=== PATIENT | female | born 1980 | race Two or more races ===

== ENCOUNTER 2017-11-29 23:40 | Inpatient (IN) | payer BC ==
[2017-11-30] MEDS ORDERED: Oxytocin 30 UNITS in Sodium Chloride 0.9% 500 ML IV PRN (00:28)
[2017-11-30] MEDS ORDERED: ceFAZolin 2 GM in Sodium Chloride 0.9% 100 ML IVPB ONE (00:28)
[2017-11-30] MEDS ORDERED: Lactated Ringer's 1,000 ML IV SCH ×2 (00:30→10:00)
[2017-11-30 00:33] VITALS: BMI 28.8
[2017-11-30 01:11] LABS: BASO # 0.1 K/uL (0.0-0.2); BASO % 0.5 % (0.0-2.0); EOS # 0.1 K/uL (0.0-0.7); EOS % 0.6 % (0.0-4.0); HEMOGLOBIN 9.9 g/dL (12.0-16.0); LYMPH # 2.4 K/uL (1.0-4.3); LYMPH % 19.4 % (20.0-40.0); MEAN CELL VOLUME 91.6 fl (81.0-99.0); MEAN CORPUSCULAR HEMOGLOBIN 30.5 pg (27.0-31.0); MEAN CORPUSCULAR HGB CONC 33.3 g/dL (33.0-37.0); MEAN PLATELET VOLUME 9.1 fl (7.2-11.7); MONO # 1.2 K/uL (0.0-0.8); MONO % 9.7 % (0.0-10.0); NEUT # 8.7 K/uL (1.8-7.0); NEUT % 69.8 % (50.0-75.0); RBC 3.23 Mil/uL (3.80-5.20); RED CELL DISTRIBUTION WIDTH 12.9 % (11.5-14.5); WHITE BLOOD COUNT 12.5 K/uL (4.8-10.8)
--- NOTE | 2017-11-30 04:29 | OBADHP ---
Datetime: 11/30/2017 01:26 Admit Comment, IP Provider: 37 y/o female with IUP at 39.2 wks (IRVIN 12/05 as per LMP) present s for repeat c section. Pt denies vb, lof, abdominal/pelvic pain, headache, dysuria. PNC: Dr. Wolf, last U/S 1 week ago, breech, AMA, Labs reviewed-wnl OBHx: 2 SAB, 1 prior C section - in [place], no operative reports PMHX: denies PSurgHx: C section, Appendicitis Meds:PNV Allergies: NKDA Social: Negative x 3 habits General: NAD, comfortable Cardiac: RRR, normal S1, S2, no murmurs Lungs: CTABL Abdomen: Gravid, NT Extremities: No LE edema FHR: 144, reactive Assessment: IUP at 39.2 wks gestation here for repeat C section. Plan: Admit to L_D. Contionous monitoring. Type and Screen. Ancef 2g. IV hydration. NPO Discussed case with OB Hospitalist Johnny, PGY1 OB Hospitalist Addendum: 37 yo at 39+2 wks for repeat c/ s, breech presentation. Pt admitted to L_D. NST reactive. (ES) Pelvic Type - PN: Not Done Extremities - PN: Normal Abdomen - PN: Normal Back - PN: Normal Breast - PN: Not Done Lungs - PN: Normal Heart - PN: Normal Thyroid - PN: Normal Neurologic - PN: Normal HEENT - PN: Normal General - PN: Normal FHR - Baseline A Provider: 144 Vital Signs Provider: Reviewed; Within Normal Limits IP Chief Complaint: Scheduled Section NICHD Variability Prov Fetus A: Moderate 6-25bpm NICHD Accel Fetus A IP Provider: [id number] FHR Category Provider Fetus A: Category I NICHD Decel Fetus A IP Provider: None Genitourinary Exam: Normal DTRs - PN: Not Done IP Adm Impression: Term, intrauterine IP Admit Plan: Admit to unit; Initiate Section protocol
[2017-11-30] MEDS: Lactated Ringer's 1,000 ML IV SCH ×2 (05:00→06:00)
[2017-11-30] MEDS ORDERED: ePHEDrine 50 mg/ml Inj ONE (05:48)
[2017-11-30] MEDS ORDERED: Phenylephrine 10 mg/ml Inj ONE (05:48)
--- NOTE | 2017-11-30 06:22 | OBHP ---
Datetime: 11/30/2017 01:26 IP Adm Impression: Term, intrauterine ; No Active Labor; Intact Membranes IP Admit Plan: Admit to unit; Initiate Section protocol Admit Comment, IP Provider: 37 y/o female with IUP at 39.2 wks (IRVIN 12/05 as per LMP) present s for repeat c section. Pt denies vb, lof, abdominal/pelvic pain, headache, dysuria. PNC: Dr. Wolf, last U/S 1 week ago, breech, AMA, Labs reviewed-wnl OBHx: 2 SAB, 1 prior C section - in [place], no operative reports PMHX: denies PSurgHx: C section, Appendicitis Meds:PNV Allergies: NKDA Social: Negative x 3 habits General: NAD, comfortable Cardiac: RRR, normal S1, S2, no murmurs Lungs: CTABL Abdomen: Gravid, NT Extremities: No LE edema FHR: 144, reactive Assessment: IUP at 39.2 wks gestation here for repeat C section. Plan: Admit to L_D. Contionous monitoring. Type and Screen. Ancef 2g. IV hydration. NPO Discussed case with OB Hospitalist Johnny, PGY1 OB Hospitalist Addendum: 37 yo at 39+2 wks for repeat c/ s, breech presentation. Pt admitted to L_D. NST reactive. (ES) Pelvic Type - PN: Not Done Extremities - PN: Normal Abdomen - PN: Normal Back - PN: Normal Breast - PN: Not Done Lungs - PN: Normal Heart - PN: Normal Thyroid - PN: Normal Neurologic - PN: Normal HEENT - PN: Normal General - PN: Normal FHR - Baseline A Provider: 144 IP Hx Assessment: The History has been Reviewed and is Current Vital Signs Provider: Reviewed; Within Normal Limits IP Chief Complaint: Scheduled Section NICHD Variability Prov Fetus A: Moderate 6-25bpm NICHD Accel Fetus A IP Provider: [id number] FHR Category Provider Fetus A: Category I NICHD Decel Fetus A IP Provider: None Genitourinary Exam: Normal DTRs - PN: Not Done
--- NOTE | 2017-11-30 06:24 | OBPN ---
Datetime: 11/30/2017 05:50 IP Progress Impression: Reassuring heart rate IP Informed Consent Obtain: Section Delivery; Risks, Benefits and Alternatives Discussed IP Progress Plan: Deliver- Section IP Progress Note Comment: Informed consent obtained for repeat C/S and transfusion (for the possibility) FHR Category Provider Fetus A: Category I Datetime: 11/30/2017 01:26 FHR - Baseline A Provider: 144 Vital Signs Provider: Reviewed; Within Normal Limits NICHD Accel Fetus A IP Provider: [id number] NICHD Variability Prov Fetus A: Moderate 6-25bpm NICHD Decel Fetus A IP Provider: None
[2017-11-30] MEDS ORDERED: Sodium Chloride 0.9% 10 ML IV ONE (06:32)
[2017-11-30] MEDS ORDERED: Morphine 1 mg/ml preservative-free Inj(Duramorph) ONE (06:37)
[2017-11-30] MEDS ORDERED: Oxycodone/Acetaminophen 5/325 mg Tab PO PRN (07:41)
[2017-11-30] MEDS ORDERED: DiphenhydrAMINE 50 mg/ml Inj IVP PRN (08:52)
[2017-11-30] MEDS ORDERED: Morphine 1 mg/ml preservative-free Inj(Duramorph) IT ONE (08:52)
[2017-11-30 09:08] LABS: HEMOGLOBIN 10.6 g/dL (12.0-16.0); MEAN CELL VOLUME 90.9 fl (81.0-99.0); MEAN CORPUSCULAR HEMOGLOBIN 31.2 pg (27.0-31.0); MEAN CORPUSCULAR HGB CONC 34.3 g/dL (33.0-37.0); RBC 3.4 Mil/uL (3.80-5.20); RED CELL DISTRIBUTION WIDTH 12.5 % (11.5-14.5); WHITE BLOOD COUNT 11.8 K/uL (4.8-10.8)
--- NOTE | 2017-12-01 10:36 | OBPPN ---
Datetime: 12/01/2017 10:32 PP Pain Prov: Within normal limits PP Nausea Prov: Denies PP Flatus Prov: Yes PP Breasts Prov: Normal PP Heart Prov: Normal PP Lungs Prov: Normal PP Abdomen/Uterus Prov: Normal PP Lochia Prov: Normal PP Vulva/Perineum Prov: Normal PP CVA Tenderness Prov: Normal PP Extremities Prov: Normal PP Comments Phys Exam Prov: Fundus firm under umbilicus PP Progress Note Prov: Patient denies CP, no SOB, no N/V, tolerating PO diet, ambulating/voiding wel l, mild lochia, abdominal pain tolerable with meds, A/P POD #1 1. Continue postop orders 2. Percocet/Motrin prn pain 3. Encourage ambulation/ Vital Signs Provider PP: Reviewed; Within Normal Limits
--- NOTE | 2017-12-01 11:48 | OBADHP ---
Datetime: 11/30/2017 05:50 FHR Category Provider Fetus A: Category I Datetime: 11/30/2017 01:26 Admit Comment, IP Provider: 37 y/o female with IUP at 39.2 wks (IRVIN 12/05 as per LMP) present s for repeat c section.Occ CTX Pt denies vb, lof, headache, dysuria. PNC: Dr. Wolf, last U/S 1 week ago, breech, AMA, Labs reviewed-wnl OBHx: 2 SAB, 1 prior C section - in [place], no operative reports PMHX: denies PSurgHx: C section, Appendicitis Meds:PNV Allergies: NKDA Social: Negative x 3 habits General: NAD, comfortable Cardiac: RRR, normal S1, S2, no murmurs Lungs: CTABL Abdomen: Gravid, NT Extremities: No LE edema FHR: 144, reactive Assessment: IUP at 39.2 wks gestation here for repeat C section. Plan: Admit to L_D. Contionous monitoring. Type and Screen. Ancef 2g. IV hydration. NPO Discussed case with OB Hospitalist Johnny, PGY1 OB Hospitalist Addendum: 37 yo at 39+2 wks for repeat c/ s, breech presentation. EARLY L ABOR Pt admitted to L_D. NST reactive. (ES) IP Hx Assessment: The History has been Reviewed and is Current IP Adm Impression: Term, intrauterine ; No Active Labor; Intact Membranes
[2017-12-02 09:08] LABS: HEMOGLOBIN 10.4 g/dL (12.0-16.0); MEAN CELL VOLUME 92.7 fl (81.0-99.0); MEAN CORPUSCULAR HEMOGLOBIN 30.5 pg (27.0-31.0); MEAN CORPUSCULAR HGB CONC 32.9 g/dL (33.0-37.0); RBC 3.41 Mil/uL (3.80-5.20); RED CELL DISTRIBUTION WIDTH 13.2 % (11.5-14.5); WHITE BLOOD COUNT 17.6 K/uL (4.8-10.8)
--- NOTE | 2017-12-02 13:50 | OBPPN ---
Datetime: 12/02/2017 13:44 PP Pain Prov: Within normal limits PP Nausea Prov: Denies PP Flatus Prov: Yes PP Breasts Prov: Normal PP Heart Prov: Normal PP Lungs Prov: Normal PP Abdomen/Uterus Prov: Normal PP Lochia Prov: Normal PP Vulva/Perineum Prov: Normal PP CVA Tenderness Prov: Normal PP Extremities Prov: Normal PP C/S Incision Prov: Normal PP Progress Prov: Normal PP Comments Phys Exam Prov: Abd: Soft, NT, BS- present UT- Firm, NT Incision: Clean and dry PP Impression Prov: Normal progression PP Plan Prov: Discharge PP Progress Note Prov: S/P Repeat C/S, POD #2 Clinically Stable. Pt requests to be sent home because she has a child at home. Postop instructions given to the patient. Pt asked to f/u in 2 weeks. Plan: D/C Home. F/U in 2 weeks. Vital Signs Provider PP: Reviewed
--- NOTE | 2017-12-02 13:52 | OBDCSUM ---
Datetime: 12/02/2017 13:48 Discharged to, Provider: Home Follow up at, Provider: OB Office Disch Instr Activity: Normal activity Disch Instr Diet: Regular Discharge Instructions, Provider: Routine instructions given Discharge Diagnosis, Provider: Term Delivered Discharge Time: 12/02/2017 13:49 Follow up in weeks, Provider: 2 weeks Disch Referrals: None Contraception discussed, Prov: Yes Discharge Comment, Provider: S/P Repeat Section, Clinically Stable Discharge Diagnosis Prov Other: S/P Repeat Section, Clinically Stable
[2017-12-02 23:53] VITALS: BP 117/64; PULSE 93; RESP 20; TEMP 98.3; O2SAT 98
--- NOTE | 2017-12-05 08:38 | OP ---
PROCEDURE DATE: 11/30/2017 PREOPERATIVE DIAGNOSIS: Intrauterine at 39 weeks' gestation, previous section x1 undocumented scar, breech presentation, declining vaginal after section. POSTOPERATIVE DIAGNOSIS: Intrauterine at 39 weeks' gestation, previous section x1 undocumented scar, delivered cephalic, declining vaginal after section. PROCEDURE: Repeat low transverse section via previous surgical scar. SURGEON: Dr. Zachary Wolf. AUXILIARY POWERPLANT OPERATOR: Dr. Russell Whiting (Dr. Russell Whiting is a board certified JAVA TECHNICAL MANAGER physician, who is available for this case. He was present from time of incision to the delivery of the to closure of the skin. His presence was vital and necessary for the procedure, also no residents or the surgical services coordinator was available). ANESTHESIOLOGIST: Dr. Rahman and Dr. Salcedo. TYPE OF ANESTHESIA: Spinal. OPERATIVE FINDINGS: Live male delivered from a cephalic presentation. Clear amniotic fluid noted. Apgars score is 9 and 9 given at 1 and 5 minutes respectively. Placenta was delivered intact manually. Ovaries and tubes appeared to be within normal limits grossly. She remained hemodynamically stable throughout the procedure. ESTIMATED BLOOD LOSS: 800 mL. DESCRIPTION OF PROCEDURE: Doris was brought to the operating room. She was given IV antibiotics preop. She was placed in a supine position after successful spinal anesthesia by Dr. Rahman. Compression boots were placed on both lower extremities. Catheter was placed into the bladder and noted to be draining clear urine. She was then draped and prepped in the usual sterile manner. Once adequate anesthesia was obtained, incision was made through her previous surgical scar. The previous surgical was removed and this was done using a scalpel. Incision was then taken down to underlying fascia using electrocautery. Fascia was nicked in the midline and extended bilaterally using electrocautery. Inferior aspect of the fascia was grasped using 2 Ezekiel clamps and tented up in the rectus muscle, was both bluntly and sharply dissected inferiorly as well as superiorly using electrocautery. In the midline, the rectus muscle was grasped using 2 Allis clamps in the superior end and tented up and midline was incised using a scalpel. We had entered the peritoneum cavity and incision was then extended superiorly and inferiorly with direct visualization of the bladder and intestines. Bladder blade was then inserted. Bladder flap was created by incising peritoneum on the uterus and extending it bilaterally using Metzenbaum scissors. Bladder flap was then created digitally. Bladder blade was then inserted behind the bladder flap. A low transverse incision was made using a scalpel. Clear amniotic fluid was noted upon rupture of membranes. Incision was extended digitally. was then delivered from cephalically. First, the head was delivered as atraumatically as possible, was bulb suctioned nasopharyngeally. The remainder of the was then delivered as atraumatically as possible. Cord was then clamped and cut. was handed to the bridge club manager in attendance. Placenta was then delivered intact manually. Uterus was then exteriorized, cleared of debris and clots. Ovaries and tubes appeared to be within normal limits grossly. Good contracted uterus is noted, IV Pitocin is given. A 0 Vicryl suture was used to close the first layer of the uterus. Second layer of the uterus was closed using 0 Vicryl suture imbricating the first layer. Good hemostasis was assured. Posterior cul-de-sac was irrigated. Uterus was placed back into the peritoneal cavity. Paracolic gutters noted to be clear of debris and clots. Incision line was reinspected and noted to have good hemostasis. All equipments removed and accounted for. 0 Vicryl suture was used to approximate the rectus muscle x3 in interrupted fashion after the peritoneum was approximated using 0 Vicryl suture in a running fashion. Rectus muscle was noted to have good hemostasis. 0 Vicryl suture was used to approximate the fascial layer in a running fashion. Irrigation was performed. Hemostasis assured using electrocautery. A 2-0 plain suture was used to approximate subcuticular layer x3. 3-0 Vicryl suture on the skin was used to approximate the skin. Dermabond, Steri-Strips, and a pressure bandage were applied. All equipments were removed and accounted for. She was brought to the recovery room in stable condition. All equipments, sponges, needles accounted for. Zachary Wolf DO [facility]
--- NOTE | 2017-12-05 11:00 | OBDS ---
DELIVERY PERSONNEL Delivery Doctor: Samson Wolf DO Scrub Nurse: Kerry Tapia Visitor Services Assistant: Sary Gallegos RN Anesthesiologist: Barry Rahman MD MATERNAL INFORMATION Delivery Anesthesia: Spinal Medications in Delivery: pitocin Estimated Blood Loss (ml): 800 Placenta Cultured: No Provider Comments: Pre Op Dx IUP at 39w; previous C/S x 1 (undoc scar) breech on last sono (declined ) PostOpDx same Procedure: Repeat LTCS via previous scar Surgeon Dr Maryann Rodriguez DrAguilar Anest: Dr Rahman/Dr Salcedo Anest: spinal Findings: Live male infant delivered from [facility] pres clear AF 9,9 Placenta delivered intact manually Ovaries and tubes WNL grossly She remained stable EBL 800cc LABOR SUMMARY EDC: 12/05/2017 00:00 No. Babies in Womb: 1 Attempted: No Labor Anesthesia: None LABOR INFORMATION Reason for Induction: Not Applicable Group B Beta Strep: Negative Antibiotics Time of Last Dose: 0600 , ancef 2 gram ivpb Steroids Given: None STAGES OF LABOR Stage 3 hrs: 0 Stage 3 min: 1 VAGINAL DELIVERY Sponge Count Correct: Yes CSECTION DELIVERY Primary Indication: Repeat Elective Other Primary Indication: Declined Secondary Indication: Breech Presentation CSection Urgency: Elective CSection Incidence: Repeat Labor: No Labor Elective: Elective CSection Incision: Lower Uterine Transverse Uterine Closure: Double-layer closure BABY A INFORMATION Delivery Date/Time: 11/30/2017 07:07 Method of Delivery: Born in Route : No : N/A Forceps: N/A Shoulder Dystocia : No SHOULDER DYSTOCIA BABY A Infant Delivery Date/Time: 11/30/2017 07:07 PRESENTATION/POSITION BABY A Presentation: Cephalic Cephalic Presentation: Vertex Vertex Position: Left Occipital Anterior Breech Presentation: N/A PLACENTA INFORMATION BABY A Placenta Delivery Time : 11/30/2017 07:08 Placenta Method of Delivery: Manual Removal Placenta Status: Delivered SCORES BABY A Heart Rate 1 min: >100 bpm Resp Effort 1 min: Good Cry Reflex Irritability 1 min: Cough or Sneeze or Pulls Away Muscle Tone 1 min: Active Motion Color 1 min: Body [place], Extremities Blue SCORE 1 MIN: 9 Heart Rate 5 min: >100 bpm Resp Effort 5 min: Good Cry Reflex Irritability 5 min: Cough or Sneeze or Pulls Away Muscle Tone 5 min: Active Motion Color 5 min: Body [place], Extremities Blue SCORE 5 MIN: 9 INFANT INFORMATION BABY A Gestational Age at Delivery: 39 2/7 Gestational Status: Term Infant Outcome : Liveborn Infant Condition : Stable Sex: Male IDENTIFICATION/MEDS BABY A ID Band Number: [id number] ID Band Location: Left Leg; Left Arm WEIGHT/LENGTH BABY A Birthweight (gms): 3520 Weight (lb): 7 Infant Weight (oz): 12 CORD INFORMATION BABY A No. Cord Vessels: 3 Nuchal Cord : Around Neck x1, Loose Cord Blood Taken: Yes Infant Suction: Mouth; Nose ASSESSMENT BABY A Complications: None Physical Findings at Delivery: Within Normal Limits Infant Respirations: Appears Normal Infant Care By: dr schreiber/portia rn RESUSCITATION BABY A Resuscitation Effort: Tactile Stimulation
== END 2017-12-02 19:30 | disposition home or self-care (01) | DRG 766 ==
LOC: H.EROB2 23:40 → H.L&D 11-30 00:41 → H.OB/GYN 11-30 10:29
PROVIDERS: ADMIT Obstetrics & Gynecology; ATTEND Obstetrics & Gynecology
PROC: 10D00Z1 Extraction of Products of Conception, Low, Open Approach (ICD-10-PCS; principal; 2017-11-30)
PROC: 4A0HXCZ Measurement of Products of Conception, Cardiac Rate, External Approach (ICD-10-PCS; 2017-11-30)
DX: O34.211 Maternal care for low transverse scar from previous cesarean delivery (principal); O32.1XX0 Maternal care for breech presentation, not applicable or unspecified; O69.81X0 Labor and delivery complicated by cord around neck, without compression, not applicable or unspecified; O09.523 Supervision of elderly multigravida, third trimester; Z37.0 Single live birth; Z3A.39 39 weeks gestation of pregnancy